=== PATIENT | female | born 1960 | race Caucasian/White ===

== ENCOUNTER 2020-03-24 10:01 | Emergency (ER) | payer BC ==
[2020-03-24] MEDS ORDERED: HYDROmorphone HCL INJ 2 MG/ML VIAL IM ONE ×3 (10:14→10:47)
[2020-03-24 10:19] VITALS: TEMP 96.6
--- NOTE | 2020-03-24 10:27 | ED.PDOC ---
History of Present Illness - General Chief Complaint: Trauma Stated Complaint: Left arm/shoulder pain Time Seen by Provider: 03/24/20 10:10 Source: patient, family Exam Limitations: no limitations - History of Present Illness Initial Comments: PT WAS OUTSIDE, TRIPPED AND FELL. SHE OUTSTRETCHED HER LEFT ARM TO BRACE HER FALL. SHE HEAD A "POP" IN L ARM AND PAIN ENSUED IN L HUMERUS. SHE THINKS SHE BROKE HER ARM. Timing/Duration: constant Severity: severe Improving Factors: immobilization Worsening Factors: movement Associated Symptoms: denies symptoms Allergies/Adverse Reactions: Allergies processed meats Allergy (Uncoded 03/24/20 10:20) Home Medications: Ambulatory Orders Tramadol HCl [Ultram] 50 mg PO Q6HR PRN #15 tab 03/24/20 Review of Systems - Review of Systems Constitutional: States: no symptoms reported EENTM: States: no symptoms reported. Denies: ear pain, nose pain Respiratory: States: no symptoms reported Cardiology: States: no symptoms reported Gastrointestinal/Abdominal: States: no symptoms reported. Denies: abdominal pain Genitourinary: States: no symptoms reported Musculoskeletal: States: see HPI. Denies: back pain, neck pain Skin: States: no symptoms reported. Denies: lesions, lumps, rash Neurological: States: no symptoms reported. Denies: headache, paresthesia Endocrine: States: no symptoms reported Hematologic/Lymphatic: States: no symptoms reported All other Systems: Reviewed and Negative Past Medical History (General) - Patient Medical History Hx Seizures: No Hx Stroke: No Hx Dementia: No Hx Asthma: No Hx of COPD: No Hx Cardiac Disorders: No Hx Congestive Heart Failure: No Hx Pacemaker: No Hx Hypertension: No Hx Thyroid Disease: No Hx Diabetes: No Hx Gastroesophageal Reflux: No Hx Renal Disease: No Hx Cancer: No Hx of HIV: No Hx Hepatitis C: No Hx MRSA: No MRSA Source:: Wound Surgical History: no surgical history - Vaccination History Hx Tetanus, Diphtheria Vaccination: No Hx Influenza Vaccination: No - Social History Hx Tobacco Use: No Hx Alcohol Use: No - Female History Patient is a Female of Child Bearing Age (10 -59 yrs old): No Family Medical History - Family History Mother Family History: Unknown Living Status: Unknown Physical Exam - Physical Exam General Appearance: Alert, Obvious distress Eye Exam: bilateral normal Ears, Nose, Throat: hearing grossly normal, normal ENT inspection, normal pharynx Neck: non-tender, full range of motion, supple Respiratory: chest non-tender, lungs clear, no respiratory distress, no accessory muscle use Cardiovascular/Chest: normal peripheral pulses, regular rate, rhythm Peripheral Pulses: radial,right: 2+, radial,left: 2+ Gastrointestinal/Abdominal: normal bowel sounds, non tender, soft Back Exam: no CVA tenderness, no vertebral tenderness Extremity: no pedal edema, no calf tenderness, other - LUE - NEUROVASCULARLY IN TACT. HUMEROUS AND ELBOW EXQUISITELY TTP. NO VISIBLE FORESHORTENING. NO STEP- OFFS. LIMITED ROM EXAM OF SHOULDER, ELBOW, WRIST, HAND D/T ELICITING PAIN IN THE DISTAL HUMERUS. LUE EXAM RESULTS IN PAIN IN L HUMERUS AND ELBOW. L HAND TRINSIC MUSCLES IN TACT, THUS RADIAL, ULNAR, AND MEDIAN NERVES IN TACT. HAND IS WARM, WELL PERFUSED. STRONG RADIAL PULSES. Neurologic: tissue inserter II-XII nml as tested, no motor/sensory deficits, alert, normal mood/affect, oriented x 3 Skin Exam: normal color, warm/dry Lymphatic: no adenopathy Progress - Progress Progress: 03/24/20 10:52 ELBOW X-RAY - CLOSED, SUBLUXED, COMMINUTED FRACTURE OF OLECRANON. SHOULDER AND HUMERAL XRAY NEG PER MY READ. I WILL REVIEW RADIOLOGY READ AND THEN CONSULT ORTHOPEDIC SURGERY. 03/24/20 11:00 L RADIAL HEAD AND PROXIMAL RADIUS, COMMINUTED FRX. ELBOW POSTERIORLY DISLOCATED. XRAY OF HUMERUS AND SHOULDER NEG. CONTACTING DR. JEAN. 03/24/20 11:[address] JEAN WHO RECOMMENDED ER REDUCING THE ULNA INTO OLECRANON FOSSA (DISLOCATED ELBOW), PLACING IN SPLINT, AND CALL HIS OFFICE TO F/U IN HIS CLINIC TOMORROW. NO URGENT SURGERY INDICATED, SHE IS NEUROVASCULARLY IN TACT; REDUCTION IN ER IS APPROPRIATE. AFTER REDUCTION, I WILL OBTAIN POST-REDUCTION X-RAYS AND EXAMINE TO ENSURE STILL NEUROVASCULARLY IN TACT. WILL PLACE ON WORD PROCESSOR OPERATOR, PLACE IV, AND NC 02 FOR LIGHT MAC ANESTHESIA VIA FENTANYL AND VERSED. 03/24/20 13:45 RIGHT ELBOW SUCCESSFULLY REDUCED BY ER VIA INFERIOR AND ANTERIOR MANUAL TRACTION OF FOREARM. I FELT IT MOVE BACK INTO JOINT WITH MY LEFT HAND, WHICH WAS PROVIDING TRACTION. EXAMINED TO ENSURE STILL NEUROVASCULARLY IN TACT. STRONG BL RADIAL PULSES. POST-REDUCTION XRAYS SHOW RELOCATED PROPERLY. WILL SPLINT AND DC FOR F/U WITH DR. JEAN TOMORROW. 03/24/20 14:35 Procedures - Splinting Right Elbow Hand-Made Type: orthoglass Splint: SHORT ARM SPLINT Pre-Proc Neuro Vasc Exam: normal Post-Proc Neuro Vasc Exam: normal Departure - Departure Clinical Impression: Fracture of radial head, left, closed Qualifiers: Encounter type: initial encounter Fracture alignment: displaced Qualified Code(s): S52.122A - Displaced fracture of head of left radius, initial encounter for closed fracture Posterior dislocation of left elbow Qualifiers: Encounter type: initial encounter Qualified Code(s): S53.125A - Posterior dislocation of left ulnohumeral joint, initial encounter Disposition: Discharge to Home or Self Care Condition: Good Departure Forms: ED Discharge - Pt. Copy, Patient Portal Self Enrollment Instructions: Dislocated Elbow Diet: resume usual diet Activity: increase activity as tolerated Referrals: Raghav Jean MD [Active Staff] - 1-2 Days Prescriptions: Tramadol HCl [Ultram] 50 mg PO Q6HR PRN #15 tab PRN Reason: Pain Home Medications: Ambulatory Orders Tramadol HCl [Ultram] 50 mg PO Q6HR PRN #15 tab 03/24/20
--- NOTE | 2020-03-24 10:54 | RAD ---
EXAM DESCRIPTION: Elbow,Left 2 Views CLINICAL HISTORY: 59 years Female, FELL, HEARD A "POP", PAIN IN LEFT HUMERUS. COMPARISON: None. TECHNIQUE: 2 views of the left elbow. FINDINGS: Posterior dislocation of the elbow joint is noted. Significantly comminuted fracture of the radial head and proximal shaft of the radius. Elbow joint effusion and significant soft tissue swelling. IMPRESSION: Posterior dislocation of the elbow joint is noted. Significantly comminuted fracture of the radial head and proximal shaft of the radius. Electronically signed by: Kya Kurtz MD 03/24/2020 10:52 AM CDT
--- NOTE | 2020-03-24 10:54 | RAD ---
EXAM DESCRIPTION: Humerus,Left CLINICAL HISTORY: 59 years Female, FELL, HEARD A "POP", PAIN IN LEFT HUMERUS. COMPARISON: None. TECHNIQUE: 2 views of the left humerus were obtained. FINDINGS: Changes of elbow joint dislocation are again noted. No definite fracture of the humerus is visualized. IMPRESSION: No definite fracture of the humerus is visualized. Electronically signed by: Kya Kurtz MD 03/24/2020 10:53 AM CDT
--- NOTE | 2020-03-24 10:55 | RAD ---
EXAM DESCRIPTION: Shoulder,Left 1 View CLINICAL HISTORY: 59 years Female, FELL, HEARD A "POP", PAIN IN LEFT HUMERUS. COMPARISON: None available. FINDINGS: Single AP view of the left shoulder demonstrates no evidence of acute fracture or dislocation. Possible calcific tendinosis of the rotator cuff. IMPRESSION: Single AP view of the left shoulder demonstrates no evidence of acute fracture or dislocation. Possible calcific tendinosis of the rotator cuff. Electronically signed by: Kya Kurtz MD 03/24/2020 10:53 AM CDT
[2020-03-24] MEDS ORDERED: fentaNYL CITRATE INJ 50 MCG/ML 2 ML AMP IV ONE ×2 (11:59→12:38)
[2020-03-24] MEDS ORDERED: MIDAZOLAM INJ 5 MG/5 ML VIAL IV ONE ×2 (12:00→12:38)
--- NOTE | 2020-03-24 13:23 | RAD ---
EXAM DESCRIPTION: Elbow,Left 2 Views CLINICAL HISTORY: 59 years Female, post reduction COMPARISON: Radiographs performed on the same day. TECHNIQUE: 2 views of the left elbow were obtained. FINDINGS: Interval reduction of the previously identified posterior elbow dislocation. Comminuted fracture of the radial head and proximal radial shaft is again noted. Few bone fragments are noted in the anterior joint recess. Joint effusion and soft tissue swelling is present. IMPRESSION: Interval reduction of the previously identified posterior elbow dislocation. Comminuted fracture of the radial head and proximal radial shaft is again noted. Few bone fragments are noted in the anterior joint recess. Electronically signed by: Kya Kurtz MD 03/24/2020 1:21 PM CDT
[2020-03-24 14:47] VITALS: BP 135/81; O2SAT 95
== END 2020-03-24 14:45 | disposition home or self-care (01) ==
LOC: ER 10:01
DX: S52.122A Displaced fracture of head of left radius, initial encounter for closed fracture (principal); S53.125A Posterior dislocation of left ulnohumeral joint, initial encounter; W01.0XXA Fall on same level from slipping, tripping and stumbling without subsequent striking against object, initial encounter; Y92.9 Unspecified place or not applicable
CPT/HCPCS: 73020; 73060; 73070; J1170; J2250; J3010

== ENCOUNTER → 2020-03-31 | Outpatient (CLI) | payer BC ==
--- NOTE | 2020-03-31 14:40 | CT ---
EXAM DESCRIPTION: Upper Extremity CLINICAL HISTORY: 59 years Female, LEFT ELBOW RADIAL HEAD FX COMPARISON: Left elbow radiograph March 24, 2020 TECHNIQUE: CT of the left elbow was performed without IV contrast. This exam was performed according to our departmental dose-optimization program, which includes automated exposure control, adjustment of the mA and/or kV according to patient size and/or use of iterative reconstruction technique. FINDINGS: Again seen is a comminuted and slightly displaced radial head neck fracture with intra-articular extension, moderate displacement of the five or 6 mm. There are a few tiny fracture fragment is displaced anterior to the distal humerus and midline. Left elbow hemarthrosis. No supracondylar or other humeral fracture. The humeral condyles are intact. Tiny fracture involving the tip of the coronoid process. The olecranon and proximal ulna are otherwise intact. Diffuse soft tissue swelling. IMPRESSION: Severely comminuted right radial head and neck fracture with intra-articular extension and up to 5 or 6 mm displacement. Minimally displaced fracture involving the tip of the coronoid process. No distal humeral fracture Electronically signed by: Paras Skelton MD 03/31/2020 2:39 PM CDT
== END ==
LOC: CT 09:21
PROVIDERS: ATTEND Orthopaedic Surgery
DX: S52.122A Displaced fracture of head of left radius, initial encounter for closed fracture (principal); S52.042A Displaced fracture of coronoid process of left ulna, initial encounter for closed fracture

== ENCOUNTER → 2020-08-13 | Outpatient (CLI) | payer BC ==
--- NOTE | 2020-08-17 17:29 | MAM ---
EXAM DESCRIPTION: 3D Screening BILATERAL : Digital Mammography. CLINICAL HISTORY: 59 years Female ANNUAL SCREENING . No complaints. No family history breast cancer. Menarche age 12. Childbirth age 26. Menopause age 51. No HRT. Lifetime risk of developing breast cancer (Tyrer-Cuzick model)(%): 8.1. COMPARISON: Baseline study at this facility. No prior reports available. TECHNIQUE: Bilateral CC and MLO projection full-field images, digital tomosynthesis mammographic technique. Bilateral digital 2-D full-field MLO images. CAD available for 2-D images. FINDINGS: The breast parenchymal density pattern is: Heterogeneously dense breast tissue, which may obscure small masses. No skin thickening or nipple retraction. Axillary nodes. Solitary microcalcifications. Coarse calcifications. Focal asymmetry and/or mass density, possibly a circumscribed cyst posterior third upper outer quadrant right breast. Less circumscribed focal asymmetry or mass density 7:00 position posterior third right breast. Multiple circumscribed nodules 1 cm or less in diameter in the left breast. One in the middle third of the lateral left breast approximately 8 cm from the nipple. Second in the lower outer quadrant of the anterior third of the left breast at the 6:00 position, 5 cm from the nipple. 3 air in the posterior third of the lower outer quadrant of the left breast approximately 5:00 position. These are most likely cysts or lymph nodes.. IMPRESSION: BI-RADS CATEGORY: 0 - INCOMPLETE- Need additional imaging evaluation. RECOMMENDATIONS: FOLLOW-UP: Recall for additional imaging: Diagnostic right digital breast. Tomosynthesis and 2-D images in the LM projection. Bilateral directed ultrasound of the regions of interest. Written communication concerning the IMPRESSION and Follow-up, will be mailed to the patient and referring health care provider. Electronically signed by: Ralf Porter MD 08/17/2020 5:28 PM CDT
== END ==
LOC: MAMMO 15:24
PROVIDERS: ATTEND Family Medicine
DX: Z12.31 Encounter for screening mammogram for malignant neoplasm of breast (principal); R92.8 Other abnormal and inconclusive findings on diagnostic imaging of breast

== ENCOUNTER 2020-08-26 05:08 | Day surgery (SDC) | payer BC ==
[2020-08-26] MEDS ORDERED: ceFAZolin SODIUM 1 GM VIAL ONE ×2 (06:56→07:30)
[2020-08-26] MEDS ORDERED: LIDOCAINE 1% 10 ML VIAL INJ ONE (06:56)
[2020-08-26] MEDS ORDERED: VANCOMYCIN HCL INJ 1,000 MG VIAL IVPB ONE (06:56)
[2020-08-26] MEDS ORDERED: BUPIVACAINE 0.25% INJ 30 ML VIAL INJ ONE (06:57)
[2020-08-26] MEDS ORDERED: PROPOFOL 200 MG/20 ML VIAL IV ONE (07:00)
[2020-08-26] MEDS ORDERED: LACTATED RINGERS 1,000 ML ONE (07:30)
[2020-08-26] MEDS ORDERED: SODIUM CHL 0.9% 100ML MINI-BAG 100 ML IVPB ONE (07:30)
[2020-08-26] MEDS ORDERED: LACTATED RINGERS 1,000 ML IVS ONE (08:50)
[2020-08-26 13:54] VITALS: BP 167/92; TEMP 98; O2SAT 99
--- NOTE | 2020-09-08 08:57 | OP ---
DATE OF PROCEDURE: 08/26/20 PREOPERATIVE DIAGNOSIS: 1. Left carpal tunnel syndrome. POSTOPERATIVE DIAGNOSIS: 1. Left carpal tunnel syndrome. PROCEDURE: 1. Left carpal tunnel release. SURGEON: Raghav Jean MD. SKID ADZER: Ralf Pagan CST, SA-C. ANESTHESIA: Local with sedation. COMPLICATIONS: None. FINDINGS: 1. Thickening of the transverse carpal ligament. 2. Narrowing of the median nerve across the carpal tunnel. INDICATION: Annalee has a long history of symptoms consistent with carpal tunnel syndrome. Because of her ongoing symptoms, she requested operative intervention. After discussing the risks, benefits and alternatives to that, she gave informed consent for carpal tunnel release. PROCEDURE: The patient was brought to the Operating Room and placed in the supine position. Sedation was administered and local anesthetic was injected into the operative area under sterile conditions. After the injection of anesthetic, the arm was sterilely prepped and draped. A longitudinal incision was made directly overlying the transverse carpal ligament and blunt dissection was carried down to the ligament. The transverse carpal ligament was sharply transected along its length and a [place] elevator was used to ensure complete release of the ligament. Once release had been confirmed, the wound was thoroughly irrigated and the wound was closed with Nylon suture. A sterile dressing was placed and the patient was taken to the Day Surgery Unit. POSTOPERATIVE PLAN: She will be using the digits for range of motion and will followup with us in two days. #[id number] MTDD
== END 2020-08-26 12:20 | disposition home or self-care (01) ==
LOC: AMB 05:08
PROVIDERS: ATTEND Orthopaedic Surgery
DX: G56.02 Carpal tunnel syndrome, left upper limb (principal); Z79.899 Other long term (current) drug therapy
CPT/HCPCS: 01810; 64721; 80307; 87070; 87077; 87186; J0690; J3370; J3490; J7050; J7120

== ENCOUNTER → 2020-08-31 | Outpatient (CLI) | payer BC ==
--- NOTE | 2020-09-01 11:23 | US ---
EXAM DESCRIPTION: Breast,Bilateral: Ultrasound. CLINICAL HISTORY: 59 yearsFemaleABNORMAL MAMMO COMPARISON: Bilateral screening digital breast tomosynthesis August 13 TECHNIQUE: Transcutaneous scanning of the bilateral breasts utilizing pretty-scale and Doppler modes. Scanning performed by the loan reviewer ; observation by Dr. Porter. FINDINGS: Scanning lateral right breast. Specifically 10 cm from the nipple at 10:00. Well-circumscribed anechoic cyst with parallel orientation measuring 1.9 x 1.9 cm. Posterior acoustic enhancement. Surrounded by fibroglandular tissues and minimal fatty replacement. Scanning at the 7:00 position of the right breast 8 cm from the nipple. Focal fibroglandular tissue surrounded by fatty infiltrated tissue. No margins, no fluid component, no calcifications. In the adjacent soft tissues is a hypoechoic mass partially echogenic and mostly circumscribed, measuring 6.1 x 5.6 mm with parallel orientation and posterior acoustic enhancement. This is consistent with a lymph node. Scanning left breast which is mostly fibroglandular tissues with scattered fatty components. Scanning 6 cm from the nipple at 6:00. Hypoechoic mass with eccentric echogenicity and circumscribed margins, parallel orientation and mixed posterior acoustic features measuring 8.3 x 6.0 mm and consistent with a lymph node. Nonvascular. Similar-appearing lymph node 5.7 x 2.8 mm 6 cm from the nipple at 5:00. Lymph node measuring 9.2 x 9.0 mm 6 cm from the nipple at 3:00. Not vascular. A second lymph node in the adjacent soft tissues measures 6.7 mm. Nonvascular. IMPRESSION: Benign exam. BIRAD CATEGORY: 2 BENIGN FINDINGS. RECOMMENDATIONS: FOLLOW UP: Return to routine digital bilateral mammographic screening, one year interval from August 2020. Written communication explaining the IMPRESSION and follow-up, will be mailed to the patient and referring health care provider. According to the [employer], yearly mammograms are recommended starting at age 40 and continuing as long as a woman is in good health. Any breast change noted on a breast self-exam should be reported promptly to the patient's healthcare provider. Breast MRI is recommended for women with an approximately 20-25% or greater lifetime risk of breast cancer, including women with a strong family history of breast or ovarian cancer and women who have been treated for Hodgkin's disease. A negative mammographic report should not delay tissue diagnosis in patients with significant clinical history or physical findings. Extremely dense breast tissue limits the sensitivity of digital mammography. Electronically signed by: Ralf Porter MD 09/01/2020 11:22 AM [facility]
== END ==
LOC: MAMMO 09:12
PROVIDERS: ATTEND Family Medicine
DX: R92.8 Other abnormal and inconclusive findings on diagnostic imaging of breast (principal); N60.01 Solitary cyst of right breast